=== PATIENT | female | born 1985 | race Caucasian/White ===

== ENCOUNTER 2022-04-06 11:29 | Outpatient (CLI) | payer OTHER, SELFPAY ==
--- NOTE | ~2022-04-06 | XR_ITS ---
XR chest 2V DATE: 04/06/2022 12:37 INDICATION: Nicotine dependence TECHNIQUE: PA and lateral views COMPARISON: None FINDINGS: Normal heart size. No hilar or mediastinal enlargement. The lungs are mildly hyperinflated. No pulmonary infiltrate or consolidation, pleural effusion or pulmonary vascular congestion or pneum othorax. Included skeletal structures are unremarkable. IMPRESSION: Mild bilateral hyperinflation; no active cardiopulmonary disease Reviewed, dictated and finalized at location A. S REPRESENTATIVE CASH REGISTERS
[2022-04-06 12:03] LABS: Basophils Percent Auto 0.6 % (0.2-1.2); Eosinophils Absolute Auto 0.2 K/mm3 (0-0.3); Eosinophils Percent Auto 3.1 % (0-4.4); Hematocrit 40.4 % (37.0-47.0); Hemoglobin 13.1 g/dL (12.0-15.0); Immature Granulocyte Absolute 0.01 K/mm3 (0.00-0.031); Immature Granulocyte Percent A 0.2 % (0-0.5); Lymphocytes Absolute Auto 2.39 K/mm3 (0.9-3.2); Lymphocytes Percent Auto 37.3 % (18.3-44.2); Mean Corpuscular HGB Conc 32.4 g/dl (32-36); Mean Corpuscular Hemoglobin 30.3 pg (26-34); Mean Corpuscular Volume 93.5 fl (80-100); Mean Platelet Volume 8.8 fl (7.4-10.4); Monocytes Absolute Auto 0.4 K/mm3 (0.1-0.6); Monocytes Percent Auto 5.6 % (2.6-8.5); Neutrophils Absolute Auto 3.4 K/mm3 (1.3-6.7); Neutrophils Percent Auto 53.2 % (45.5-73.1); Platelet Count Result 330 k/mm3 (150-375); Red Blood Count 4.32 M/mm3 (4.2-5.4); Red Cell Distribution Width 13.2 % (11.5-14.5); White Blood Count 6.4 K/mm3 (4.5-10.0)
--- NOTE | 2022-04-06 12:12 | ECG_ITS ---
Measurements Intervals [place] Rate: 78 P: 11 MA: 170 QRS: 59 QRSD: 82 T: 38 QT: 367 QTc: 418 Interpretive Statements SINUS RHYTHM NORMAL ECG NO PREVIOUS ECG AVAILABLE FOR COMPARISON Electronically Signed On 04-06-2022 12:53:08 ATOMIC PROCESS ENGINEER by Jake Mcclendon D.O.
[2022-04-06 12:15] LABS: Prothrombin Time 12.9 Seconds (11.1-14.7)
[2022-04-06 12:22] LABS: Anion Gap 13 mmol/L (8-16); Blood Urea Nitrogen 17 mg/dL (7-17); Calcium 8.3 mg/dL (8.4-10.2); Carbon Dioxide 28 mmol/L (22-30); Chloride 99 mmol/L (98-107); Estimated Glomerular Filt Rate > 60; Glucose 103 mg/dL (65-110); Sodium 140 mmol/L (137-145)
[2022-04-06 13:06] LABS: Appearance Urine Cloudy (Clear); Bilirubin Urine Negative (Negative); Blood Urine Trace-intact (Negative); Color Urine Dark Yellow (Yellow); Glucose Urine UA Negative (Negative); Ketones Urine Negative (Negative); Leukocyte Esterase Ur Negative LEU/UL (Negative); Nitrate Urine Negative (Negative); Protein Urine Negative (Negative); Urobilinogen Urine 0.2 mg/dL (<2.0)
[2022-04-06 13:10] LABS: Bacteria Urine Trace /hpf; Mucus Urine Few /lpf; RBC Urine 0-2 /hpf (0-2); Squamous Epithelial Cell Urine Many /hpf (Few); WBC Urine 0-3 /hpf
[2022-04-06 13:28] LABS: Add Urine Microscopic? YES
== END 2022-04-06 11:30 | disposition home or self-care (01) ==
PROVIDERS: Visit Provider Neurological Surgery
DX: Z01.818 Encounter for other preprocedural examination (principal); Z87.891 Personal history of nicotine dependence; R91.8 Other nonspecific abnormal finding of lung field
CPT/HCPCS: 36415; 71046; 80048; 81001; 85025; 85610; 85730; 86850; 86900; 86901; 93005

== ENCOUNTER 2022-04-13 15:38 | Outpatient (CLI) | payer OTHER, SELFPAY ==
[2022-04-13 16:48] LABS: Appearance Urine Clear (Clear); Bilirubin Urine Negative (Negative); Blood Urine Trace-intact (Negative); Color Urine Yellow (Yellow); Glucose Urine UA Negative (Negative); Ketones Urine Negative (Negative); Leukocyte Esterase Ur Negative LEU/UL (NEGATIVE); Nitrate Urine Negative (Negative); Protein Urine Negative (Negative); Urobilinogen Urine 0.2 mg/dL (<2.0); pH Urine 7.5 (5.0-9.0)
[2022-04-13 17:42] LABS: Mucus Urine Rare /lpf; RBC Urine 0-2 /hpf (0-2); Squamous Epithelial Cell Urine Moderate /hpf (Few); WBC Urine 0-3 /hpf (0-3)
[2022-04-13 17:47] LABS: Add Urine Microscopic? YES
== END 2022-04-13 15:39 | disposition home or self-care (01) ==
LOC: ANHLAB 15:40
PROVIDERS: Visit Provider Neurological Surgery
DX: Z01.818 Encounter for other preprocedural examination (principal)
CPT/HCPCS: 81001; 87086; 87088

== ENCOUNTER 2022-04-25 01:41 | Day surgery (SDC) | payer OTHER, SELFPAY ==
[2022-04-17 15:23] VITALS: BMI 26.4
--- NOTE | 2022-04-17 15:30 | SUR.PREOP ---
Report to the Outpatient Waiting Room, entrance under the green pavilion located off [facility], at time _0600 on date __04/25/22 . Planned Procedure Time: _0730 . Time changes happen often and if your time is changed the preop area will call you the afternoon before. - You and your visitor will be asked to self-screen and do not enter if you have any COVID symptoms. - Only one visitor is requested with a max of two and NO children visitors are allowed at this time. - The patient visitor may be requested to leave or wait in car when not with patient due to distancing restrictions. - A mask is optional within the hospital. Patients may have clear liquids (water, carbonated beverages, clear teas, apple juice) until 3 hours prior to surgery with a maximum of 20 ounces. - No food from midnight until time of surgery - Infants may have breast milk until 4 hours before surgery, formula 6 hours prior to surgery. - Children will be allowed to drink immediately following surgery. If applicable, please bring a bottle or sippy cup to assist with drinking. Juice, water, soda, and popsicles are readily available. For infants on formula, please bring formula the day of surgery. Pacifiers are allowed. Take the following medications with a SIP of water the morning of surgery: _alprazolam_,vylar Medications to discontinue per physician _naproxen,exchedrin Date to take last dose_04/18/22 per surgeon Please no make-up, nail indonesian, hairspray, perfume, deodorant, or body powder the day of surgery. No jewelry (including any body piercings) or valuables the day of surgery, leave them at home. Please take a shower or bath the night before, or the morning of, surgery with an antibacterial soap. Wear comfortable, loose fitting clothing. Children are encouraged to wear pajamas. - Jewelry must be removed prior to entering the operating room. Rings and piercings that are not removed may be cut off. - The hospital will not accept responsibility for valuables. - Please leave all valuables, including medications, at home the day of surgery. If you are going home after surgery, a licensed fire truck driver must drive you home. - NO public transportation without another adult if you receive anesthesia. - We recommend that an adult stay with you for 24 hours following discharge. - We also recommend that you do not drive, make important decision, drink alcoholic beverages, or take any drugs that were not prescribed by your health care provider for at least 24 hours after your discharge time. For Pediatric surgeries, we recommend two adults accompany the child home. Follow any additional instructions given to you from your surgeon. If you or anyone in your household have experienced Covid symptoms in the past week, please notify your surgeon or the nurse liaison at the phone number below for possible testing. Telephone instructions given to _johnny benedict and asked if any additional questions and then verbalized understanding. Patient advised to call surgeon office or pre surgery nurse liaison [phone] if any additional questions.
[2022-04-25] VITALS (23 sets, daily range): BP systolic 99–155; BP diastolic 69–97; PULSE 73–112; RESP 6–28; TEMP 36–36.4; O2SAT 93–100
--- NOTE | ~2022-04-25 | XR_ITS ---
XR fluoroscopy no charge Pain management procedure TECHNIQUE: Fluoroscopy used during cervical discectomy with fusion performed by [Verna Hare MD] on 04/25/2022. 4 seconds of fluoroscopy time with 2 fluoroscopic images captured. ] FINDINGS: Correlate with procedure note. IMPRESSION: Fluoroscopy used during cervical discectomy with fusion. Reviewed, dictated and finalized at location A. ICAL NURSING DIRECTOR
--- NOTE | 2022-04-25 06:57 | SUR.PREOP ---
PT HAS CONSTANT NUMBNESS TO 3RD, 4TH AND 5TH DIGITS. NUMBNESS TO THUMBS AND 2ND DIGITS COMES AND GOES, SOME NUMBNESS TO LOWER ARMS.
[2022-04-25] MEDS: LACTATED RINGERS 1,000 ML 30 ML IV CONT ×2 (06:58→10:50)
--- NOTE | 2022-04-25 07:20 | WPDANESEPPF ---
Anes - Initial Pre Proc Eval Procedure: Operation Date: 04/25/22 07:30 Proposed Procedures p C5-6 C6-7 Anterior Cervical Discectomy with Fusion with Instrument - Verna Hare MD Date/Time: 04/25/22 07:20 Surgeon: Verna Hare MD Pre Op Diagnosis: Cervical Stenosis Patient Data Age: 36 Gender: F Height: 1.65 m Weight: 76.2 kg Last Vital Signs Temp 36.0 C L 04/25/22 06:52 Pulse 73 04/25/22 06:52 Resp 16 04/25/22 06:52 BP 141/84 H 04/25/22 06:52 Pulse Ox 100 04/25/22 06:52 O2 Del Method Room Air 04/25/22 06:52 Allergies Allergy/AdvReac Type Severity Reaction Status Date / Time No Known Allergies Allergy Unverified 04/25/22 06:11 Home Medications Medication Instructions Recorded Confirmed Type cariprazine 6 mg capsule (Vraylar) 6 mg PO DAILY 02/03/22 04/25/22 History escitalopram oxalate 20 mg tablet 30 mg PO DAILY 02/03/22 04/25/22 History (Lexapro) lisdexamfetamine 40 mg capsule 40 mg PO DAILY 03/27/22 04/25/22 History (Vyvanse) naproxen 500 mg tablet 500 mg PO .PRN 03/27/22 04/25/22 History alprazolam 1 mg tablet 1 mg PO DAILY 03/31/22 04/25/22 History rkqrpnx-yvrqckmxzcapq-yobtxoyy 250 1 tablet PO Q4-6H PRN Pain 04/17/22 04/25/22 History mg-250 mg-65 mg tablet (Excedrin Migraine) Laboratory Tests 04/25/22 06:28 Blood Type O Positive Antibody Screen Pending Patient hx anesthesia problems: none Family hx anesthesia problems: none Results Review: All pre-operative results and documents have been reviewed as part of the pre-operative evaluation. [facility] Past Medical History Medical History ADHD Adjustment disorder Bipolar disorder GERD (gastroesophageal reflux disease) Insomnia Mixed anxiety and depressive disorder Myelomalacia Onychomycosis Spinal stenosis in cervical region Trauma Family History Family History Father Hypertension Family history of malignant neoplasm neoplasm of skin Thyroid cancer Mother Family history of malignant neoplasm of uterus Uterine cancer Depression Anxiety Grandparent Hypertension Heart disease Malignant neoplasm of prostate Social History Social History Smoking status: Former smoker Tobacco type: e-cigarettes/vaping Additional smoking assessment comments: 10 years smoking,1ppd cigarettes ,then 10 years vaping and marijuana Alcohol intake: never Substance use: current Substance use type: marijuana Other substance usage details: smoking,daily Lack of Transportation: No Lack of Food: Never True Current Housing: I Have Housing Concerned About Future Housing: No Difficulty Paying Gas/Electric Bills: No Difficulty Paying for Meds: No Currently Unemployed: No Education: High School Diploma/GED Living arrangements: with family Gender identity (if verbalized by the patient): Female Spiritual care concerns: No Agree to blood products: Yes Anes - Eval Final PreProcedure Day of Procedure 04/25/22 07:20 Patient weight: overweight Heart: regular rate and rhythm Lungs: clear to auscultation Airway: Mallampati scale class II Neurological: alert and oriented Last oral intake: >/= 8 hours ASA classification: III Emergent: no Anesthetic plan: proceed Anesthesia type and monitoring: general ETT and standard monitoring Results Review: All pre-operative results and documents have been reviewed as part of the pre-operative evaluation. Informed Consent: The patient's anesthetic plan and its attendant risks and benefits were discussed with the patient/family/POA. Questions were solicited and answers provided to the satisfaction of the patient/family/POA.
--- NOTE | 2022-04-25 07:47 | WPDHPUPDATE1 ---
History and Physical Update Update Date/Time: 04/25/22 07:47 History and Physical has been reviewed, including an updated exam of the patient. There are NO changes in the patient's condition. Risks, benefits, and alternatives have been discussed and questions answered. Patient agrees to proceed with procedure. Plan is for ACDF C5-6 and C6-7
[2022-04-25] MEDS: ceFAZolin 2 GM/D5W 50 ML 2 GM/50 ML BAG IVPB ×2 (07:53→20:17)
[2022-04-25] MEDS: HEMOSTATIC MATRIX (SURGIFLO with THROMBIN) KIT 1 KIT XX (08:48)
--- NOTE | 2022-04-25 10:32 | W.PM.PROC2 ---
Procedure Note - Detailed Date of Procedure 04/25/22 Pre-op Diagnosis Cervical Stenosis with myelopathy Post-op Diagnosis Same Procedure Performed Anterior cervical discectomy with fusion, C5-6 and C6-7 Placement of interbody cage, C5-6 and C6-7 Surgeon Verna Hare MD Anesthesia General Indications Ms. Griffin is a 36-year-old female with a progressive history of numbness and weakness in all of her extremities over the last 2 years.? She has clear signs and symptoms of myelopathy under physical exam.? Her MRI shows multilevel cervical degeneration and disc bulges and has with significant cord compression at C5-6 and C6-7 in particular.? There is also myelomalacia of the spinal cord at the level of C6.? Given her progressive symptoms and the amount of cord compression on her imaging, I do recommend consideration of surgical intervention within the near future.? Particularly given the patinet's relatively young age as well as her smoking history, we have discussed a variety of surgical approaches including multilevel ACDF, as well as the alternative of an ACDF that targets the levels of greatest stenosis (C5-7) versus posterior approach.? At our initial visit I suggested to Brisa discuss surgical approach with one of my partners and requested that she come back to see me within the next 1-2 weeks to discuss surgery in more detail.? I have had this conversation with my partner, Dr. Evens Rasmussen, and he and I both agree that given the patient's smoking history as well as her congenital stenosis, with the most severe stenosis present at C5-6 and C6-7, that I would favor an approach the targeted C5-6 and C6-7 from an anterior approach.? The likelihood of pseudoarthrosis is extremely high in a smoker for 4 level fusion.? Thus, I would prefer to decompress the canal anteriorly at C5-6 and C6-7.? I recognize that this may require ultimately a posterior operation as well.? I have discussed with this with the patient who expresses understanding We have discussed the clinical diagnosis of cervical myelopathy and that the primary goal of any surgery would be to arrest the decline in terms of her clinical symptoms and that while we would hope for clinical recovery after surgery, it would by no means guarantee recovery of function. ? we have discussed the indications as well as the risks of surgery including but not limited to bleeding, infection, CSF leak, numbness, weakness, paralysis, stroke, coma, even .? We have discussed the risks specific to an ACDF approach including damage to adjacent structures such as blood vessels, esophagus, trachea, and recurrent laryngeal nerve.We also discussed the importance of smoking cessation in terms of minimizing the risk of pseudarthrosis. She expressed understanding and agreed with the plan, asking us to proceed with surgery, specifically ACDF at C5-6 and C6-7. Description of Procedure The patient was brought into the operating room where general anesthesia was induced without incident.? appropriate monitoring and access was obtained.? SSEP and MEP were obtained and monitored throughout the case.? The patient was positioned in a supine position on the OR table with a roll underneath her shoulder blades.? Her neck was extended.? All extremities were padded. The C5-6 level was identified with fluoroscopy and the patient was prepped and draped in a sterile fashion.? A linear incision was made in a skin crease in the left paratracheal region overlying the C5-6 disc space.? Hemostasis was achieved.? The platysma was dissected, cauterized and incised sharply.? The muscle was undermined and a retractor was placed.? The sternocleidomastoid and strap muscles were identified and dissected and, in an intramuscular plane dissectors were advanced to the prevertebral space. A bent needle was placed in the C5-6 disc space and the level was confirmed.? The self retaining retractors were placed. Dissection was carried down to expose the C6-7 disc
--- NOTE | 2022-04-25 12:17 | SUR.PHASEI ---
1200 pt remains sedated with oral airway,dr mora aware and instructed to let pt wake on own.
[2022-04-25] MEDS: MIDAZOLAM HCL (*CRX) 2 MG/2 ML VIAL 0.5 MG IV PUSH (13:38)
[2022-04-25] MEDS: MIDAZOLAM HCL (*CRX) 2 MG/2 ML VIAL 1.5 MG IV PUSH (14:01)
--- NOTE | 2022-04-25 14:08 | SUR.PHASEI ---
dr mora here and assessed pt ,pt agitated and moving frequently in stretcher,attempting to get out of stretcher and pull off monitors. moving all extremities. versed given . pads applied to stretcher for safety. falls asleep for short periods then awakens agitated.
--- NOTE | 2022-04-25 14:38 | SUR.PHASEI ---
DR. LOVETT HERE TO SEE PT, STATES SHE CAN BE ADMITTED TO THE FLOOR.
--- NOTE | 2022-04-25 14:54 | SUR.PHASEI ---
right upper arm bruising from bp cuff. [id number] called spouse ,pt has not had any previos surgery. informed spouse restless and confused at times. taken to bathroom per wheelchair.
--- NOTE | 2022-04-25 14:59 | SUR.PHASEI ---
1500 vss,voided large amount. back to stretcher and sleeping quietly.more cooperative. follows commands.
--- NOTE | 2022-04-25 15:23 | SUR.PHASEI ---
pt awaiting room assignment ,
--- NOTE | 2022-04-25 16:50 | ADMGEN ---
This patient, Brisa Griffin, was admitted to [facility] Surg Room 311-01. Patient/family oriented to hospital policies and general routines including ID bracelet, bed and alarms, visiting hours, pain management, procedures, bathroom and other care routines, personal items, smoking policy, room service/diet, and visiting hours. Information on how to activate the Rapid Response Team has been discussed. Patient/Family are encouraged to report perceived risks to care and to ask questions if they do not understand what they are told or what they should do.
[2022-04-25] MEDS: HYDROcodone/acetaminophen (*CRX) 10-325 MG TABLET 1 TAB PO (17:03)
--- NOTE | 2022-04-25 18:30 | WPDCN ---
Assessment and Plan Assessment and plan (1) Spinal stenosis in cervical region: Code(s): M48.02 - Spinal stenosis, cervical region Status: Acute (2) Cervical myelopathy: Code(s): G95.9 - Disease of spinal cord, unspecified Status: Acute (3) Psychiatric illness: Code(s): F99 - Mental disorder, not otherwise specified Status: Acute Plan The patient is status post anterior cervical diskectomy with fusion and placement of interbody cage at C5-6 and C6-7. Wound care, pain control, and DVT prophylaxis deferred to the primary service. Postoperatively her vital signs have been stable. Her pain is well controlled on hydrocodone. She has not had much to eat yet as of yet as she is just not hungry. She has been able to drink without issues. Once tolerating p.o. her IV fluids can be discontinued. Check baseline labs in a.m. Her home medications will be reviewed and resumed as appropriate. Thank you for allowing us to participate in this patient's care. Please do not hesitate to contact us with any questions. HPI Data of Consult Date/Time: 04/25/22 18:30 Requesting Physician: Consulting physician: Verna Hare MD. Primary Care Provider: Supervising physician: Dr. Mandy Vargas. Consult Narrative Reason for consult: Postoperative medical management. Narrative: This is a 36-year-old female with bipolar disorder, depression, ADD, and congenital cervical stenosis status post elective anterior cervical diskectomy with fusion and placement of interbody cage from C5-6 and C6-7 whom the hospitalist service has been consulted for postoperative medical management. Over the past couple of years she has had progressive numbness and weakness in all of her extremities, upper greater than lower, and she elected for surgery today. Her surgery was performed under general anesthesia with no immediate complications documented. Postoperatively she is doing well and she has minimal pain after receiving hydrocodone. She has not noticed any significant swelling in the neck and she has been able to eat and drink without issue. She also denies postoperative fever, chills, sweats, chest pain, shortness a breath, nausea, and vomiting. She denies acute changes in weakness and numbness in the upper extremities. Review of Systems Review of Systems: Twelve systems were reviewed. No recent cold or flu symptoms. No chest pain or pleuritic pain. She denies shortness of breath. No nausea or vomiting. She reports that her psychiatric illnesses are well controlled on home medication. Except as documented, all other systems were reviewed and are negative. [facility] Past Medical History Medical History (Updated 04/25/22 @ 21:22 by Lucina Monet PA-C) ADHD Adjustment disorder Bipolar disorder Gastroesophageal reflux Insomnia Mixed anxiety and depressive disorder Myelomalacia Onychomycosis Spinal stenosis in cervical region Tobacco dependence Surgical History Surgical History (Updated 04/25/22 @ 21:23 by Lucina Monet PA-C) History of fusion of cervical spine Family History Family History Father Hypertension Family history of malignant neoplasm neoplasm of skin Thyroid cancer Mother Family history of malignant neoplasm of uterus Uterine cancer Depression Anxiety Grandparent Hypertension Heart disease Malignant neoplasm of prostate Social History Social History (Updated 04/25/22 @ 21:23 by Lucina Monet PA-C) Social History: Surrogate medical decision maker: Kal Cacereser, spouse. Code status: Full code. Smoking status: Former smoker Additional smoking assessment comments: 10 years smoking,1ppd cigarettes ,then 10 years vaping and marijuana Alcohol intake: never Substance use: current Substance use type: marijuana Other substance usage details: smoking,daily Lack of Transportation: No Lack of Food: Never True
[2022-04-25] MEDS: DOCUSATE SODIUM 100 MG CAPSULE PO (20:18)
[2022-04-26 03:49] VITALS: BP 109/69; PULSE 77; RESP 14; TEMP 37.1; O2SAT 98
[2022-04-26] MEDS: HYDROcodone/acetaminophen (*CRX) 10-325 MG TABLET 1 TAB PO (06:21)
[2022-04-26 06:38] LABS: Hematocrit 38.4 % (37.0-47.0); Hemoglobin 12.6 g/dL (12.0-15.0); Mean Corpuscular HGB Conc 32.8 g/dl (32-36); Mean Corpuscular Hemoglobin 30.5 pg (26-34); Mean Platelet Volume 9.1 fl (7.4-10.4); Platelet Count Result 295 k/mm3 (150-375); Red Blood Count 4.13 M/mm3 (4.2-5.4); Red Cell Distribution Width 13.4 % (11.5-14.5); White Blood Count 14.3 K/mm3 (4.5-10.0)
[2022-04-26 06:42] LABS: Anion Gap 7 mmol/L (8-16); Blood Urea Nitrogen 13 mg/dL (7-17); Calcium 8.7 mg/dL (8.4-10.2); Carbon Dioxide 29 mmol/L (22-30); Chloride 99 mmol/L (98-107); Estimated CRCL calculation 110 ml/min; Estimated Glomerular Filt Rate > 60; Glucose 95 mg/dL (65-110); Magnesium 2.2 mg/dL (1.6-2.3); Potassium 4.1 mmol/L (3.4-5.0); Sodium 135 mmol/L (137-145)
[2022-04-26 07:49] VITALS: BP 110/64; PULSE 75; RESP 15; TEMP 36.9; O2SAT 98
[2022-04-26] MEDS: ceFAZolin 2 GM/D5W 50 ML 2 GM/50 ML BAG IVPB (08:33)
[2022-04-26] MEDS: DOCUSATE SODIUM 100 MG CAPSULE PO (08:34)
[2022-04-26] MEDS: ESCITALOPRAM OXALATE 10 MG TABLET 30 MG PO (08:34)
[2022-04-26] MEDS: ALPRAZolam (*CRX) 0.5 MG TABLET 1 MG PO (08:36)
--- NOTE | 2022-04-26 12:23 | PM.IMPN ---
Progress Note: A&P Assessment and Plan (1) Spinal stenosis in cervical region: Code(s): M48.02 - Spinal stenosis, cervical region Status: Acute Assessment and Plan: POD1 Anterior cervical fusion with discectomy C5-6 and C6-7 with placement of interbody cage, C5-6 and C6-7 Postop per Neurosurgery Pain managed on PO analgesics. No urinary retention or incontinence, numbness/tingling and weakness unchanged for preop. Tolerating diet without N/V H/H stable without s/s bleeding. WBC 14 but afebrile and surgical site without infection, LS clear, no dysuria or flank pain; 2/2 surgery. We discussed monitoring surgical site for s/s infection daily. Postop antibiotics per surgery. Renal function and electrolytes stable. VS stable. DVT prophylaxis per surgery (2) Cervical myelopathy: Code(s): G95.9 - Disease of spinal cord, unspecified Status: Chronic Assessment and Plan: chronic, stable. postop management as above. (3) Bipolar disorder: Qualifiers: Active/Remission status: in remission of unspecified degree Qualified Code(s): F31.70 - Bipolar disorder, currently in remission, most recent episode unspecified Code(s): F31.9 - Bipolar disorder, unspecified Status: Chronic Assessment and Plan: Chronic, stable. Continue Vraylar and Lexapro at home doses (4) ADHD: Qualifiers: Attention deficit-hyperactivity disorder type: unspecified Qualified Code(s): F90.9 - Attention-deficit hyperactivity disorder, unspecified type Code(s): F90.9 - Attention-deficit hyperactivity disorder, unspecified type Status: Chronic Assessment and Plan: Chronic, stable. She was instructed to stop Vyvanse by her outpatient provider. Hold inpatient. (5) Tobacco dependence: Code(s): F17.200 - Nicotine dependence, unspecified, uncomplicated Status: Chronic Assessment and Plan: Chronic, former cigarette smoker x10 years and currently vaping nicotine and marijuana. Recommend cessation. Plan Patient stable on current medications without need for adjustment at this time. Thank you for allowing us to participate in this patient's care. Please do not hesitate to contact us with any questions. Time Spent With Patient Time with patient: 15 - 25 minutes Subjective Date/time seen: 04/26/22 12:23 She reports chronic paresthesia to extremities that is unchanged. No paralysis. Her pain is tolerable on oral analgesics at this time. No chest pain, SOB, cough, palpitations, abd pain, N/V, or dysuria. She has not yet had a BM but is tolerating her diet without complaints. Review of Systems Review of Systems: All systems reviewed & are unremarkable except as noted in HPI and below Exam Narrative: General: No acute distress.? Well-developed and well-groomed adult female.? Sitting up in bed.? Mental Status/Psych: Awake, alert and oriented x4 with clear speech. Neutral mood and affect. Pleasant and cooperative. Skin: Skin fair, warm, and dry, without rashes or lesions. 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 HEENT: Normocephalic.? Atraumatic.? Sclera is non-icteric. EOM intact. PERRL. Grossly normal hearing. Oral mucosa pink and dry. Neck: Supple, mild generalized edema anterior neck. Trachea midline. No JVD. Heart: S1 and S2 regular rate and rhythm. No murmurs, gallops, or rubs auscultated. Chest: Respirations even and unlabored. Lung sounds are clear to auscultation in all lobes bilaterally without wheezes, rhonchi, or rales.? Speaking full sentences. Abdomen: Soft, round and nontender to palpation.? No guarding.? Bowel sounds present in all 4 quadrants. Extremities:? Grossly normal ROM all extremities, generalized weakness. BUE hand grasps equal 4/5. equal plantar flexion. No edema, erythema, tenderness to palpation. Radial and dorsalis pedis pulses +2 bilaterally. Neuro
== END 2022-04-26 13:30 | disposition home or self-care (01) ==
LOC: ANHSURGERY 11:20 → ANH3MEDSUR 16:57
PROVIDERS: Physician Assistant; PCP Physician Assistant; Visit Provider Neurological Surgery
PROC: (CPT 63030; principal; 2022-04-25 07:30)
DX: M48.02 Spinal stenosis, cervical region (principal); G99.2 Myelopathy in diseases classified elsewhere; F90.9 Attention-deficit hyperactivity disorder, unspecified type; F31.9 Bipolar disorder, unspecified; F41.8 Other specified anxiety disorders; F12.90 Cannabis use, unspecified, uncomplicated; F17.290 Nicotine dependence, other tobacco product, uncomplicated
CPT/HCPCS: 22551; 22552; 22853 ×2; 36415; 71046; 80048; 81001; 83735; 85025; 85027; 85610; 85730; 86850; 86900; 86901; 87086; 87088; 93005; 97161; 97165; 99199; A9270; C1713; C9290; J0330; J0360; J0690; J1100; J1170; J2250; J2405; J2704; J3010; J3370; J7120

== ENCOUNTER 2022-06-06 13:54 | Outpatient (CLI) | payer OTHER, SELFPAY ==
--- NOTE | ~2022-06-06 | XR_ITS ---
EXAMINATION: [id number]_[id number]_CR DATE: 06/06/2022 14:09 INDICATION: Neck pain. TECHNIQUE: 2 views of the cervical spine were obtained. COMPARISON: None. FINDINGS: There is 6 degrees levocurvature of cervicothoracic spine. Vertebral body heights are carlee l. There is moderately decreased disc height at C3-C4 and C4-C5. There are changes of anterior fusion procedure from C5 to C7 with interbody devices and anterior plate and screws. There is multilevel un covertebral joint osteoarthritis, moderate to severe from C3-C4 through C6-C7. Osseous central spinal canal is developmentally small in cervical spine. There is mild central canal stenosis at C3-C4, C4- C5, C5-C6, and C6-C7. No prevertebral soft tissue swelling. IMPRESSION: 1. Moderate cervical spondylosis. 2. Anterior fusion procedure from C5 to C7. Reviewed, dictated and finalized at location A. ER PROGRAM COORDINATOR
== END 2022-06-06 13:55 | disposition home or self-care (01) ==
LOC: ANHIMG 13:58
PROVIDERS: PCP Physician Assistant; Visit Provider Nurse Practitioner Adult Health
DX: M48.02 Spinal stenosis, cervical region (principal); M47.892 Other spondylosis, cervical region; Z98.1 Arthrodesis status
CPT/HCPCS: 72040

== ENCOUNTER 2022-10-18 12:55 | Outpatient (CLI) | payer OTHER, SELFPAY ==
--- NOTE | ~2022-10-18 | XR_ITS ---
Cervical Spine: AP, lateral, open-mouth views Clinical History: Arthrodesis COMPARISON: 06/06/2022 Findings: Stable anterior fusion hardware from C5 to C7 with associated interbody fusion devices at t he C5-C6 and C6-C7 disc spaces. Mild degenerative disc narrowing at C3-C4 and C4-C5 is similar to dominique or exam. Pre-vertebral soft tissues are unremarkable. Impression: Stable anterior fusion from C5 to C7, as detailed above. Reviewed, dictated and finalized at location M. Impression: Stable anterior fusion from C5 to C7, as detailed above.
--- NOTE | ~2022-10-18 | MR_ITS ---
MRI of the cervical spine Clinical History: Arm pain Technique: Axial T2-weighted and gradient images, and sagittal T1-weighted, T2-weighted, and STIR deonte ges were acquired. Following intravenous administration of 15 cc MultiHance gadolinium, T1-weighted f at-sat imaging was performed in the axial and sagittal planes. Findings: There is straightening of the normal cervical lordosis. There is anterior fusion from C5 th rough C7, with associated anterior hardware and susceptibility artifact. Intraosseous hemangioma in T 1 noted. No fracture or subluxation seen. At C2-C3, there is no disc bulge or herniation. There is no spinal canal stenosis, cord compression, or neural foraminal narrowing. At C3-C4, there is disc osteophyte complex, resulting in mild to moderate canal stenosis and mild cor d compression. There is bilateral neural foraminal narrowing, left worse than right. At C4-C5, there is disc osteophyte complex results in moderate canal stenosis and mild to moderate co rd compression. Neural foramina are preserved. At C5-C6, there is disc osteophyte complex resulting in moderate to severe canal stenosis and cord co mpression. There is focal spinal cord edema at this level. There is bilateral neural foraminal narrow ing. At C6-C7, there is disc osteophyte complex resulting in moderate to severe canal stenosis and cord co mpression. Bilateral neural foramina are narrowed, left worse than right. Postcontrast images demonstrate focal enhancement within spinal cord at the C5-C6 level on the left s kamari (sagittal image 10, axial postcontrast image 20). Paravertebral soft tissues are unremarkable. Impression: Moderate to severe cord compression and canal stenosis at C5-C6 and C6-C7. There is associated spinal cord edema focally at the C5-C6 level. Focal cord enhancement at the C5-C6 level is present, which i s rarely associated with compressive myelopathy. Mild to moderate cord compression at C4-C5, and mild cord compression at C3-C4, again related to disc osteophyte complexes. Multilevel neural foraminal narrowing, as detailed above. Anterior fusion hardware from C5 to C7 with straightening of the normal cervical lordosis. Reviewed, dictated and finalized at location . Impression: Moderate to severe cord compression and canal stenosis at C5-C6 and C6-C7. Ther e is associated spinal cord edema focally at the C5-C6 level. Focal cord enhanc ement at the C5-C6 level is present, which is rarely associated with compressiv e myelopathy. Mild to moderate cord compression at C4-C5, and mild cord compression at C3-C4, again related to disc osteophyte complexes. Multilevel neural foraminal narrowing, as detailed above. Anterior fusion hardware from C5 to C7 with straightening of the normal cervica l lordosis.
== END 2022-10-18 12:56 ==
LOC: MICIMG 12:56
PROVIDERS: PCP Physician Assistant; Visit Provider Neurological Surgery
DX: M79.603 Pain in arm, unspecified (principal); Z98.1 Arthrodesis status; M48.02 Spinal stenosis, cervical region
CPT/HCPCS: 72040; 72156; A9577

== ENCOUNTER 2023-02-23 13:37 | Outpatient (CLI) | payer OTHER, SELFPAY ==
[2023-02-23 14:02] LABS: Hematocrit 39.5 % (37.0-47.0); Hemoglobin 12.7 g/dL (12.0-15.0); Mean Corpuscular HGB Conc 32.2 g/dl (32-36); Mean Corpuscular Hemoglobin 28.9 pg (26-34); Mean Platelet Volume 9.1 fl (7.4-10.4); Platelet Count Result 350 k/mm3 (150-375); Red Blood Count 4.39 M/mm3 (4.2-5.4); Red Cell Distribution Width 13.4 % (11.5-14.5); White Blood Count 5.8 K/mm3 (4.5-10.0)
[2023-02-23 14:15] LABS: Anion Gap 6 mmol/L (8-16); Blood Urea Nitrogen 18 mg/dL (7-17); Calcium 9.1 mg/dL (8.4-10.2); Carbon Dioxide 27 mmol/L (22-30); Chloride 105 mmol/L (98-107); Estimated Glomerular Filt Rate > 60; Glucose 99 mg/dL (65-110); Potassium 3.7 mmol/L (3.4-5.0); Sodium 138 mmol/L (137-145)
[2023-02-23 15:03] LABS: Prothrombin Time 13.9 Seconds (11.1-14.7)
[2023-02-23 15:04] LABS: Partial Thromboplastin Time 29.6 SECONDS (22.3-36.8)
[2023-02-23 15:20] LABS: Appearance Urine Clear (Clear); Bacteria Urine 1+ /hpf; Bilirubin Urine Negative (Negative); Blood Urine 2+ (Negative); Color Urine Yellow (Yellow); Glucose Urine UA Negative (Negative); Ketones Urine Negative (Negative); Leukocyte Esterase Ur Negative LEU/UL (Negative); Mucus Urine Present /lpf; Need Manual Microscopic Reviewed; Nitrate Urine Negative (Negative); Protein Urine Trace mg/dL (Negative); RBC Urine 21-50 /hpf (0-2); Specific Grav Ur 1.024 (1.001-1.035); Squamous Epithelial Cell Urine Many /hpf (Few); Urobilinogen Urine 0.2 mg/dL (<2.0); WBC Urine 0-5 /hpf; pH Urine 5.5 (5.0-9.0)
[2023-02-23 15:22] LABS: Add Urine Microscopic? YES
== END 2023-02-23 13:38 | disposition home or self-care (01) ==
LOC: ANHSURGERY 13:39
PROVIDERS: PCP Physician Assistant; Visit Provider Neurological Surgery
DX: M48.02 Spinal stenosis, cervical region (principal); Z01.818 Encounter for other preprocedural examination
CPT/HCPCS: 36415; 80048; 81001; 85027; 85610; 85730; 86850; 86900; 86901

== ENCOUNTER 2023-03-02 13:00 | Observation (INO) | payer OTHER, SELFPAY ==
[2023-02-22 14:41] VITALS: BMI 29.1
--- NOTE | 2023-02-22 14:46 | PC.NURSE ---
Report to the Outpatient Waiting Room, entrance under the green pavilion located off [facility], at time 6:00 on date 03/01/23. Planned Procedure Time: 7:30. Time changes happen often and if your time is changed the preop area will call you the afternoon before. - You and your visitor will be asked to self-screen and do not enter if you have any COVID symptoms. - A mask is optional within the hospital at this time. Patients may have clear liquids (water, carbonated beverages, clear teas, apple juice) until 3 hours prior to surgery with a maximum of 20 ounces. - No food from midnight until time of surgery Take the following medications with a SIP of water the morning of surgery: VRAYLAR, LEXAPRO, ALPRAZOLAM DO NOT STOP ANY OF YOUR OTHER PRESCRIPTION MEDICATIONS PRIOR TO SURGERY ?EXCEPT THE FOLLOWING Medications to discontinue per physician: EXCEDRIN MIGRAINE/ANY PRODUCT WITH ASPIRIN Date to take last dose: 02/21/23 Please no make-up, nail filipino, hairspray, perfume, deodorant, or body powder the day of surgery. No jewelry (including any body piercings) or valuables the day of surgery, leave them at home. Please take a shower or bath the night before, or the morning of, surgery with an antibacterial soap. Wear comfortable, loose fitting clothing. - Jewelry must be removed prior to entering the operating room. Rings and piercings that are not removed may be cut off. - The hospital will not accept responsibility for valuables. - Please leave all valuables, including medications, at home the day of surgery. If you are going home after surgery, a licensed clark driver must drive you home. - NO public transportation without another adult if you receive anesthesia. - We recommend that an adult stay with you for 24 hours following discharge. - We also recommend that you do not drive, make important decision, drink alcoholic beverages, or take any drugs that were not prescribed by your health care provider for at least 24 hours after your discharge time. Follow any additional instructions given to you from your surgeon. If you or anyone in your household have experienced Covid symptoms in the past week, please notify your surgeon or the nurse liaison at the phone number below for possible testing. Telephone instructions given to PT - DANIE FRASER and asked if any additional questions and then verbalized understanding. Patient advised to call surgeon office or pre surgery nurse liaison [phone] if any additional questions.
[2023-03-01] VITALS (18 sets, daily range): BP systolic 108–191; BP diastolic 70–132; PULSE 75–96; RESP 14–21; TEMP 35.6–36.6; O2SAT 92–100
--- NOTE | 2023-03-01 06:57 | WPDANESEPPF ---
Anes - Initial Pre Proc Eval Procedure: Operation Date: 03/01/23 07:30 Proposed Procedures p C3-4 and C6-7 Posterior Cervical Decompression and Fusion - Verna Hare MD Date/Time: 03/01/23 06:57 Surgeon: Verna Hare MD Pre Op Diagnosis: cervical stenosis Patient Data Age: 37 Gender: F Height: 1.65 m Weight: 79.4 kg Allergies Allergy/AdvReac Type Severity Reaction Status Date / Time No Known Allergies Allergy Verified 02/22/23 14:38 Home Medications Medication Instructions Recorded Confirmed Type cariprazine 6 mg capsule (Vraylar) 6 mg PO DAILY 02/03/22 02/22/23 History escitalopram oxalate 20 mg tablet 30 mg PO DAILY 02/03/22 02/22/23 History (Lexapro) alprazolam 1 mg tablet 1 mg PO DAILY 03/31/22 02/22/23 History hwprrzl-opzldsbfafmly-aypzdikt 250 1 tablet PO Q4-6H PRN Migraine 02/22/23 02/22/23 History mg-250 mg-65 mg tablet (Excedrin Headache Migraine) dextroamphetamine-amphetamine 30 30 mg PO BID 02/22/23 02/22/23 History mg tablet Patient hx anesthesia problems: none Family hx anesthesia problems: none Results Review: All pre-operative results and documents have been reviewed as part of the pre-operative evaluation. [facility] Past Medical History Medical History ADHD Adjustment disorder Bipolar disorder Gastroesophageal reflux Insomnia Mixed anxiety and depressive disorder Myelomalacia Onychomycosis Spinal stenosis in cervical region Tobacco dependence Surgical History Surgical History History of fusion of cervical spine Status post cervical spinal fusion Family History Family History Father Hypertension Family history of malignant neoplasm neoplasm of skin Thyroid cancer Mother Family history of malignant neoplasm of uterus Uterine cancer Depression Anxiety Grandparent Hypertension Heart disease Malignant neoplasm of prostate Social History Social History Social History: Brisa is somewhat confident filling out medical forms. In the last 12 months she has not received assistance from an organization or program. Surrogate medical decision maker: Kal Griffin, spouse. Code status: Full code. Smoking status: Current every day smoker Tobacco type: e-cigarettes/vaping Additional smoking assessment comments: 10 years smoking,1ppd cigarettes ,then 10 years vaping and marijuana Alcohol intake: never Substance use: current Substance use type: marijuana Other substance usage details: smoking,daily Lack of Transportation: No Lack of Food: Never True Current Housing: I Have Housing Concerned About Future Housing: No Difficulty Paying Gas/Electric Bills: No Difficulty Paying for Meds: No Currently Unemployed: Decline to Answer Education: Decline to Answer Difficulty w/ Childcare or Family Care: No Living arrangements: with family Additional living arrangements comments: Lives with spouse. Occupation/Education: unemployed Additional occupation/education comments: Unable to work at this time. Spiritual care concerns: No Agree to blood products: Yes Anes - Eval Final PreProcedure Day of Procedure 03/01/23 06:57 Patient weight: obese Heart: regular rate and rhythm Lungs: clear to auscultation Airway: Mallampati scale class II Neurological: alert and oriented Last oral intake: >/= 8 hours ASA classification: III Emergent: no Anesthetic plan: proceed Anesthesia type and monitoring: general ETT and standard monitoring Results Review: All pre-operative results and documents have been reviewed as part of the pre-operative evaluation. Informed Consent: The patient's anesthetic plan and its attendant risks and benefits were discussed with the patient/family/POA. Questions were solicite
[2023-03-01] MEDS: SCOPOLAMINE 1.5 MG PATCH TRANSDERM (07:30)
[2023-03-01] MEDS: LACTATED RINGERS 1,000 ML 30 ML IV CONT ×2 (07:30→11:20)
[2023-03-01 07:39] LABS: Beta HCG Quantitative < 2.39 mIU/ML
--- NOTE | 2023-03-01 08:04 | WPDHPUPDATE1 ---
History and Physical Update Update Date/Time: 03/01/23 08:04 History and Physical has been reviewed, including an updated exam of the patient. There are NO changes in the patient's condition. Risks, benefits, and alternatives have been discussed and questions answered. Patient agrees to proceed with procedure. Plan is for posterior cervical decompression and fusion from C3-4 through C6-7
[2023-03-01] MEDS: ceFAZolin 2 GM/D5W 50 ML 2 GM/50 ML BAG IVPB (08:26)
[2023-03-01] MEDS: BACITRACIN OINTMENT 15 GM TUBE 1 APPLIC TOPICAL (09:30)
[2023-03-01] MEDS: VANCOMYCIN HCL 1,000 MG VIAL 1000 MG TOPICAL (10:23)
[2023-03-01] MEDS: LIDO 1%/EPINEPHRINE 1:100,000 20 ML VIAL 12 ML INFILTRATE (10:40)
--- NOTE | 2023-03-01 10:49 | W.PM.PROC2 ---
Procedure Note - Detailed Date of Procedure 03/01/23 Pre-op Diagnosis cervical stenosis Post-op Diagnosis Same Procedure Performed posterior cervical decompression with laminectomies and foraminotomies C3-4, C4-5, C5-6 and C6-7 posterior cervical arthrodesis C3-4, C4-5 C5-6 and C6-7 Instrumented cervical fusion C3-C6 removal of subcutaneous sebaceous cyst Surgeon Verna Hare MD Anesthesia General Indications Brisa Griffin is a 37 year old female who presents today approximately 8 months after undergoing an ACDF at C5-6 and C6-7 with placement of interbody cage at C5-6 and C6-7, completed on 04/25/2022. She reports that she is doing better .? She reports that she doesn't recognize a significant improvement in her overall strength to her BUE's but reports that her neck pain is improved.? ? She does note some persistent pain and sensory symptoms in her upper extremities. overall, I am? pleased with the patient's progress.? She has seen benefit to a formal course of physical therapy.? She has not had any progression of symptoms? but she does remain with sensory symptoms in her hands as well as issues with balance and dexterity.? ? X-rays show expected changes from the anterior cervical diskectomy with fusion with suggestion of incorporation of the cages and fusion across the posterior aspect of the vertebral bodies at C5-6 and C6-7.? Given her persistent symptoms, however, ? We have discussed the finding of congenital spinal stenosis.? Prior to her original surgery we had discussed the possibility of supplementing her anterior decompression and fusion with a posterior approach.? I have explained that I would be inclined to consider this given the persistent stenosis and cord signal change seen on imaging from September of 2022 ? I would be inclined, as we discussed previously, to recommend an adjunctive posterior cervical decompression and fusion.? We have discussed the natural history of cervical myelopathy.? The patient has not had progressive symptoms but does remain with sensory symptoms and issues with dexterity and balance.? There is persistent spinal stenosis consistent with the patient's known congenital spinal stenosis and persistent cord signal change. I have explained that surgery would entail a? posterior cervical decompression and fusion from C3-4 through C6-7. I have explained the indications for surgery as well as the risks, including but not limited to bleeding, infection, CSF leak, numbness, weakness, paralysis, stroke, coma, even . We have discussed the risk of pseudarthrosis, hardware failure, adjacent level disease, and even the need for further surgery. We have discussed the fundamentals of the surgical procedure and the typical recovery from surgery.? Brisa indicates understanding and asks us to proceed.? Brisa came to the office with a number of questions regarding her surgery its indications and its recovery.? She emphasizes the frustration at her persistent myelopathic symptoms.? She has indicated that her symptoms are severe enough that she at times wonders about long-term disability.? I have recommended that we continue to proceed with surgery as discussed above.? We will evaluate her in the months after surgery and discuss any possible long-term disability.? I have emphasized again that surgery is not a guarantee of mormon of function but offers our best chance for functional recovery.? We have frankly discussed, however, that she may remain with some persistent neurological symptoms that are limiting even after this 2nd surgery.? She expresses understanding.? ?She presents today for surgery We have discussed the importance of continued smoking cessation to minimize the likelihood of pseudoarthrosis Description of Procedure The patient was brought into the operating room where general anesthesia was induced without complications.? A neutral position was used due to cervical stenosis.? Appropriate monitoring and access was achieved
[2023-03-01] MEDS: fentaNYL CITRATE INJ (*CRX) 100 MCG/2 ML VIAL 25 MCG IV PUSH ×8 (11:49→13:37)
[2023-03-01] MEDS: MIDAZOLAM HCL (*CRX) 2 MG/2 ML VIAL 1 MG IV PUSH ×2 (12:19→12:26)
[2023-03-01] MEDS: HYDROmorphone HCL INJ (*CRX) 1 MG/ML SYR 0.25 MG IV PUSH (14:02)
[2023-03-01] MEDS: KCL 20 MEQ/D5/0.45% SOD CHL 1,000 ML 100 ML IV CONT (15:21)
[2023-03-01] MEDS: MORPHINE SULFATE (*CRX) 2 MG/ML INJ IV PUSH ×2 (15:21→20:17)
--- NOTE | 2023-03-01 16:45 | ADMGEN ---
This patient, Brisa Griffin, was admitted to Medical Room 341-01 . Patient/family oriented to hospital policies and general routines including ID bracelet, bed and alarms, visiting hours, pain management, procedures, bathroom and other care routines, personal items, smoking policy, room service/diet, and visiting hours. Information on how to activate the Rapid Response Team has been discussed. Patient/Family are encouraged to report perceived risks to care and to ask questions if they do not understand what they are told or what they should do.
--- NOTE | 2023-03-01 16:47 | PC.NURSE ---
Aircraft Metalsmith emtered room to assist patient to restroom and drain was dislodged. [employer]als[employer] notified provider. No new orders.
--- NOTE | 2023-03-01 19:43 | PC.NURSE ---
Patient impulsive and pulling at IV when she moves. MD aware and confirms fluids may be paused at this time.
[2023-03-01] MEDS: DOCUSATE SODIUM 100 MG CAPSULE PO (20:22)
[2023-03-01] MEDS: ONDANSETRON INJ 4 MG/2 ML VIAL IV PUSH (21:57)
[2023-03-01] MEDS: HYDROcodone/acetaminophen (*CRX) 10-325 MG TABLET 1 TAB PO (21:57)
--- NOTE | ~2023-03-02 | XR_ITS ---
EXAMINATION: XR fluoroscopy no charge DATE: 03/01/2023 10:57 INDICATION: Cervical decompression and fusion TECHNIQUE: 2 fluoroscopic lateral images of the cervical spine were obtained during procedure perform ed by Dr. Hare. Radiologist was not present for the imaging or procedure. The amount of fluoroscopy time used during this procedure was 0.1 minutes. COMPARISON: 10/18/2022 FINDINGS: Initial images demonstrate partially obscured anterior plate and screw fixation for a C5-C7 anterior spinal fusion. Endotracheal tube extends through the pharynx. Subsequent image demonstrates postopera tive changes of a C3-C6 instrumented posterior spinal fusion with placement of bilateral vertical tuyet s and lateral mass screws at each level. There appear to be associated laminectomies at least at L3 a nd L4. 3 to the posterior margins of L5 and L6 is obscured by soft tissue retractors. IMPRESSION: 1. Fluoroscopy utilized during placement and instrumented C3-C6 posterior spinal fusion. See procedur e note for further detail. Reviewed, dictated and finalized at location A. IMPRESSION: 1. Fluoroscopy utilized during placement and instrumented C3-C6 posterior spina l fusion. See procedure note for further detail.
[2023-03-02] MEDS: MORPHINE SULFATE (*CRX) 2 MG/ML INJ IV PUSH ×2 (03:51→10:42)
[2023-03-02 03:56] VITALS: BP 135/88; PULSE 84; RESP 20; TEMP 36.7; O2SAT 99
--- NOTE | 2023-03-02 07:23 | WPDANESPN ---
Anes - Prog Note Post-Op Date/Time: 03/02/23 07:23 Cardiovascular status: normal Respiratory status: normal Airway patency: baseline Mental status: baseline Post-Op hydration status: normal Vital Signs: Last Vital Signs Temp 98.0 F 03/02/23 03:56 Pulse 84 03/02/23 03:56 Resp 20 03/02/23 03:56 BP 135/88 03/02/23 03:56 Pulse Ox 99 03/02/23 03:56 O2 Del Method Room Air 03/01/23 14:11 O2 Flow Rate 4 03/01/23 13:45 Pain Score (VAS): 0/10 I/O: Intake & Output 03/01/23 03/01/23 03/02/23 15:59 23:59 07:59 Intake Total 1800 500 Output Total 0 Balance 1800 500 03/01/23 07:07 Beta HCG, Quant < 2.39 Post-procedural complaints: none Patient Feedback: Patient satisfied with anesthetic care.
[2023-03-02] MEDS: DOCUSATE SODIUM 100 MG CAPSULE PO (08:50)
[2023-03-02] MEDS: ESCITALOPRAM OXALATE 10 MG TABLET 30 MG PO (08:50)
[2023-03-02] MEDS: ALPRAZolam (*CRX) 0.5 MG TABLET 1 MG PO (08:50)
[2023-03-02] MEDS: CYCLOBENZAPRINE HCL 10 MG TABLET PO (08:59)
[2023-03-02] MEDS: ONDANSETRON INJ 4 MG/2 ML VIAL IV PUSH (08:59)
[2023-03-02 09:18] VITALS: BP 138/85; PULSE 85; RESP 20; TEMP 36.9; O2SAT 100
[2023-03-02 09:31] VITALS: PULSE 84; RESP 20; O2SAT 99
--- NOTE | 2023-03-02 12:43 | PM.IMCN ---
Assessment and Plan Assessment and plan (1) Status post cervical spinal fusion: Code(s): Z98.1 - Arthrodesis status Status: Acute Assessment and Plan: POD 1 from posterior cervical decompression with laminectomies and foraminotomies C3-4, C4-5, C5-6 and C6-7, posterior cervical arthrodesis C3-4, C4-5, C5-6, and C6-7, as well as instrument cervical fusion C3-C6, and removal of subcutaneous sebaceous cyst. appears to be recovering well after surgery Continue with norco, flexeril for pain medication Continue with bowel regimen General diet Encourage up out of bed during the day Post-op labs reviewed, vitals reviewed. Medically appropriate for discharge HPI Data of Consult Consult date: 03/02/23 Requesting Physician: Verna Hare MD Primary Care Provider: Leona Cortés, PA Consult Narrative Narrative: Parts of the HPI have been obtained from the chart, Brisa Griffin is a 37 year old female who presented on 03/01, approximately 8 months after undergoing an ACDF at C5-6 and C6-7 with placement of interbody cage at C5-6 and C6-7, completed on 04/25/2022. She reports that she is doing better .? She reports that she doesn't recognize a significant improvement in her overall strength to her BUE's but reports that her neck pain is improved.? ? She does note some persistent pain and sensory symptoms in her upper extremities. She has seen benefit to a formal course of physical therapy.? She has not had any progression of symptoms? but she does remain with sensory symptoms in her hands as well as issues with balance and dexterity.? ? X-rays show expected changes from the anterior cervical diskectomy with fusion with suggestion of incorporation of the cages and fusion across the posterior aspect of the vertebral bodies at C5-6 and C6-7.? She presented on 03/[address] Hare and underwent posterior cervical decompression with laminectomies and foraminotomies C3-4, C4-5, C5-6 and C6-7, posterior cervical arthrodesis C3-4, C4-5, C5-6, and C6-7, as well as instrument cervical fusion C3-C6, and removal of subcutaneous sebaceous cyst. She has a past medical history of bipolar disorder, GERD, depression anxiety, myelomalacia, spinal stenosis, and tobacco dependence. The hospitalist service has been consulted to help manage chronic medical conditions postoperatively. 03/02-patient is seen today resting in bed. She says that she is still having pain but she seems to the understand that that is to be expected. She still has right upper extremity numbness and tingling as well as left lower extremity numbness and tingling which was present prior to her surgery. Her symptoms are not worse rather the just persist. She says that she was up with therapy earlier today. She did have an episode of nausea dizziness with ambulation but this was also the 1st time her being out of bed since surgery. She has been up independently to the bathroom. She seems agreeable to discharge later today if Neurosurgery is okay with this. I spoke with her about taking the oral pain medication rather than IV as this is what she will go home with. She is agreeable. I grabbed postop labs today she has a mild leukocytosis which is reactive to from her surgery. She has a mild hyponatremia of 132, otherwise her labs are essentially unremarkable. Vital signs are stable. She is urinating without difficulty. Incision to posterior neck is well-approximated and open to air without concerns for infection. Medically she appears appropriate for discharge. Review of Systems Review of Systems: All systems reviewed & are unremarkable except as noted in HPI and below PMFSH Past Medical History Medical History ADHD Adjustment disorder Bipolar disorder Gastroesophageal reflux Insomnia Mixed anxiety and depressive disorder Myelomalacia Onychomycosis Spinal stenosis in cervical region Tobacco dep
[2023-03-02 13:05] LABS: Basophils Percent Auto 0.2 % (0.2-1.2); Hematocrit 38.9 % (37.0-47.0); Hemoglobin 12.6 g/dL (12.0-15.0); Immature Granulocyte Absolute 0.04 K/mm3 (0.00-0.031); Immature Granulocyte Percent A 0.3 % (0-0.5); Lymphocytes Absolute Auto 2.16 K/mm3 (0.9-3.2); Lymphocytes Percent Auto 14.6 % (18.3-44.2); Mean Corpuscular HGB Conc 32.4 g/dl (32-36); Mean Corpuscular Volume 89.6 fl (80-100); Monocytes Absolute Auto 1.2 K/mm3 (0.1-0.6); Monocytes Percent Auto 8.4 % (2.6-8.5); Neutrophils Absolute Auto 11.3 K/mm3 (1.3-6.7); Neutrophils Percent Auto 76.5 % (45.5-73.1); Platelet Count Result 353 k/mm3 (150-375); Red Blood Count 4.34 M/mm3 (4.2-5.4); Red Cell Distribution Width 13.3 % (11.5-14.5); White Blood Count 14.8 K/mm3 (4.5-10.0)
[2023-03-02 13:15] LABS: Alanine Aminotransferase 23 U/L (6-35); Albumin Level 4.4 g/dL (3.5-5.1); Alkaline Phosphatase 69 U/L (38-126); Anion Gap 8 mmol/L (8-16); Aspartate Amino Transferase 34 U/L (14-36); Blood Urea Nitrogen 11 mg/dL (7-17); Calcium 8.7 mg/dL (8.4-10.2); Carbon Dioxide 29 mmol/L (22-30); Chloride 95 mmol/L (98-107); Estimated CRCL calculation 112 ml/min; Estimated Glomerular Filt Rate > 60; Glucose 115 mg/dL (65-110); Magnesium 2.1 mg/dL (1.6-2.3); Potassium 3.6 mmol/L (3.4-5.0); Sodium 132 mmol/L (137-145)
[2023-03-02 13:18] VITALS: BP 129/82; PULSE 82; RESP 18; TEMP 37; O2SAT 100
[2023-03-02] MEDS: HYDROcodone/acetaminophen (*CRX) 10-325 MG TABLET 1 TAB PO (14:14)
--- NOTE | 2023-03-22 13:21 | P.DS_ITS ---
DS: Admitting Diagnosis Discharge Date 03/02/23 Admitting Diagnosis cervical stenosis with myelopathy DS: Discharge Diagnosis Discharge Diagnosis (1) Cervical myelopathy: Code(s): G95.9 - Disease of spinal cord, unspecified Status: Chronic DS: Summary Hospital Course Reason for hospitalization: elective surgery Hospital Course: PAtient was brought into the hospital for elective posterior cervical dec ompression and fusion. She did well with surgery without complications. She did have significant pain in the immediate perioperetive time frame but by the morning of POD#1 was doing much better with improved pain control Time spent discussing smoking cessation with patient: 3 to 10 minutes Status at Discharge Functional status at discharge: independent ambulation Overall status at discharge: patient is back to baseline Time Spent with Patient Time attestation: Total time spent providing and/or coordinating discharge services: Time spent: Less than 30 minutes Exam Narrative: AAOx3 Speech CF ROBE EOMI Face= TML MAEW with good strength DS: Data Data Completed and Pending Completed studies during hospitalization: Pending at discharge 03/01/23 09:28 Surgical [PTH] Routine Discharge Plan Discharge Attending physician on discharge: Verna Hare Consulting providers: Aguila Kelley; Kal Iniguez; Charles Rodriguez; Mya Aponte Discharging Clinician: Verna Hare Anticipated Discharge Date/Time: 03/02/23 16:00 Patient Disposition: Home Health Service Activity: september shower Diet: regular Wound Care Instructions: follow printed instructions and incision open to air Discharge Instructions: Remove the Scopolamine patch that was placed behind your ear in 72 hours or less. Wash your hands after touching. Per Care Coordination Patient has [facility] arranged to see pt for RN, PT, OT needs. [phone] Patient Instructions: How to Stop Smoking (GEN) Stand Alone Forms: General Discharge Instructions Follow-up/Referrals: Verna Hare MD [Physician] - 6 Weeks Discharge Medications: New cyclobenzaprine 10 mg tablet 10 mg PO TID PRN (Reason: muscle spasm) Qty: 30 0RF hydrocodone-acetaminophen 5-325 mg tablet 1 - 2 tablet PO Q6H PRN (Reason: pain) Qty: 40 0RF Continued alprazolam 1 mg tablet 1 mg PO DAILY Rx Instructions: Just takes PRN Vraylar 6 mg capsule 6 mg PO DAILY escitalopram oxalate [Lexapro] 20 mg tablet 30 mg PO DAILY dextroamphetamine-amphetamine 30 mg tablet 30 mg PO BID Discontinued Excedrin Migraine 250-250-65 mg Tablet 1 tablet PO Q4-6H PRN (Reason: Migraine Headache) Date of admission: 03/02/23 13:00 Primary Care Provider: YoavLeona Admitting Provider: Verna Hare Attending physician on admission: Verna Hare Condition: Stable Quality VTE Prophylaxis VTE prophylaxis: mechanical ordered
== END 2023-03-02 18:00 | disposition home health service (06) ==
LOC: ANHSURGERY 13:16 → ANH3MED 13:16
PROVIDERS: Nurse Practitioner Acute Care; Admitting Provider Neurological Surgery; PCP Physician Assistant; Visit Provider Neurological Surgery
PROC: (CPT 22600; principal; 2023-03-01 07:30)
DX: M48.02 Spinal stenosis, cervical region (principal); Z98.1 Arthrodesis status; G95.9 Disease of spinal cord, unspecified; L72.3 Sebaceous cyst; R51.9 Headache, unspecified; F41.8 Other specified anxiety disorders; B35.1 Tinea unguium; F90.9 Attention-deficit hyperactivity disorder, unspecified type; F43.20 Adjustment disorder, unspecified; F31.9 Bipolar disorder, unspecified; K21.9 Gastro-esophageal reflux disease without esophagitis; E66.9 Obesity, unspecified; Z68.29 Body mass index [BMI] 29.0-29.9, adult; G47.00 Insomnia, unspecified; Z79.899 Other long term (current) drug therapy; F17.290 Nicotine dependence, other tobacco product, uncomplicated; F12.90 Cannabis use, unspecified, uncomplicated; Z98.890 Other specified postprocedural states
CPT/HCPCS: 22600; 22614 ×3; 63045; 63048 ×3; 22842; 20936; 36415; 80048; 80053; 81001; 83735; 84702; 85025; 85027; 85610; 85730; 86850; 86900; 86901; 88305; 97161; 97166; 97530; 97535; 99199; A9270; C1713; C9290; G0378; J0330; J0690; J1100; J1170; J2250; J2270; J2405; J2704; J2765; J3010; J3370; J3480; J7030; J7120

== ENCOUNTER 2023-05-24 16:39 | Outpatient (CLI) | payer OTHER, SELFPAY ==
--- NOTE | ~2023-05-24 | XR_ITS ---
[id number] 05/24/2023 16:57 Indication: Arthrodesis postop 12 weeks Procedure: 4 view cervical spine Comparison: 10/18/2022 Findings: Stable anterior fusion at C5-C7 with interbody fusion devices. Interval placement of pedicl e screws with posterior fusion at C3-6 with associated splenectomy changes. Straightening of cervical lordosis. Vertebral body heights are maintained. No acute fracture or traumatic malalignment. No pre vertebral soft tissue swelling. Impression: 1: Postsurgical changes consistent with anterior and posterior cervical fusion as described above. No acute bone or joint abnormality. Reviewed, dictated and finalized at location A. PHYSICIAN Impression: 1: Postsurgical changes consistent with anterior and posterior cervical fusion as described above. No acute bone or joint abnormality.
== END 2023-05-24 16:40 | disposition home or self-care (01) ==
PROVIDERS: PCP Physician Assistant; Visit Provider Physician Assistant
DX: Z98.1 Arthrodesis status (principal)
CPT/HCPCS: 72040

== ENCOUNTER 2023-06-22 12:42 | Emergency (ER) | payer OTHER, SELFPAY ==
[2023-06-22 12:44] VITALS: BP 163/122; PULSE 130; RESP 18; TEMP 36.6; O2SAT 100
[2023-06-22 15:47] LABS: Basophils Percent Auto 0.4 % (0.2-1.2); Eosinophils Absolute Auto 0.1 K/mm3 (0-0.3); Eosinophils Percent Auto 0.9 % (0-4.4); Hematocrit 40.1 % (37.0-47.0); Immature Granulocyte Absolute 0.02 K/mm3 (0.00-0.031); Immature Granulocyte Percent A 0.2 % (0-0.5); Lymphocytes Absolute Auto 3.87 K/mm3 (0.9-3.2); Lymphocytes Percent Auto 34.4 % (18.3-44.2); Mean Corpuscular HGB Conc 32.4 g/dl (32-36); Mean Corpuscular Hemoglobin 27.7 pg (26-34); Mean Corpuscular Volume 85.5 fl (80-100); Mean Platelet Volume 8.8 fl (7.4-10.4); Monocytes Absolute Auto 0.7 K/mm3 (0.1-0.6); Monocytes Percent Auto 6.5 % (2.6-8.5); Neutrophils Absolute Auto 6.5 K/mm3 (1.3-6.7); Neutrophils Percent Auto 57.6 % (45.5-73.1); Platelet Count Result 413 k/mm3 (150-375); Red Blood Count 4.69 M/mm3 (4.2-5.4); Red Cell Distribution Width 13.9 % (11.5-14.5); White Blood Count 11.2 K/mm3 (4.5-10.0)
[2023-06-22 16:06] LABS: Alanine Aminotransferase 21 U/L (6-35); Albumin Level 4.6 g/dL (3.5-5.1); Alkaline Phosphatase 80 U/L (38-126); Anion Gap 8 mmol/L (8-16); Aspartate Amino Transferase 24 U/L (14-36); Bilirubin,Total 0.3 mg/dL (0.2-1.3); Blood Urea Nitrogen 17 mg/dL (7-17); CRP < 0.5 mg/dL (<1.0); Calcium 9.4 mg/dL (8.4-10.2); Carbon Dioxide 26 mmol/L (22-30); Chloride 102 mmol/L (98-107); Estimated CRCL calculation 111 ml/min; Estimated Glomerular Filt Rate > 60; Glucose 105 mg/dL (65-110); Potassium 3.5 mmol/L (3.4-5.0); Sodium 136 mmol/L (137-145)
--- NOTE | 2023-06-22 16:27 | ED.NEUROSD ---
HPI - Neuro Symptoms/Deficit General Chief Complaint: Neuro Symptoms/Deficit Stated Complaint: neurno s/s Time Seen by Provider: 06/22/23 14:40 History of Present Illness HPI Narrative: Patient is a 37-year-old female who presents ER with paresthesias. Patient has history of cervical myelopathy and has had surgeries performed by Dr. Hare. last procedure was in February of 2023. She had follow-up on 06/15/2023 due to the fact that she has had increased sensation of her paresthesias in the same distribution of her chronic paresthesias for the last 2 weeks. She reports sharp pinprick discomfort that will occasionally cause her to fall. No saddle anesthesia. She reports no change in ability to urinate or defecate over last 2 weeks. No trauma to her neck or back. No fevers or chills or sweats. Patient has been scheduled for outpatient MRI but they were fighting her insurance company trying to get it done. Patient felt like she developed new tingling in the toes of the left foot the last 2 days she came in for further evaluation. Related Data Home Medications Medication Instructions Recorded Confirmed alprazolam 1 mg tablet 1 mg PO DAILY 03/31/22 06/22/23 dextroamphetamine-amphetamine 30 30 mg PO BID 02/22/23 06/22/23 mg tablet Allergies Allergy/AdvReac Type Severity Reaction Status Date / Time No Known Allergies Allergy Verified 06/22/23 14:48 Review of Systems Review of Systems: All systems reviewed & are unremarkable except as noted in HPI and below Constitutional: Constitutional: Reports no additional constitutional complaints ENT: Reports system reviewed and no additional complaints, except as documented Cardiovascular: Cardiovascular: Reports no additional cardiovascular complaints Respiratory: Respiratory: Reports no additional respiratory complaints Musculoskeletal: Musculoskeletal: Denies back pain, Denies arthralgias and Denies joint swelling Integumentary/Breasts: Skin/Breast: Reports system reviewed and no additional complaints, except as docu Neurologic: Denies syncope, Denies headache(s), Denies focal weakness and Reports numbness PMFSH Past Medical History Medical History ADHD Adjustment disorder Bipolar disorder Gastroesophageal reflux Insomnia Mixed anxiety and depressive disorder Myelomalacia Onychomycosis Spinal stenosis in cervical region Tobacco dependence Surgical History Surgical History History of fusion of cervical spine Status post cervical spinal fusion Family History Family History Father Hypertension Family history of malignant neoplasm neoplasm of skin Thyroid cancer Mother Family history of malignant neoplasm of uterus Uterine cancer Depression Anxiety Grandparent Hypertension Heart disease Malignant neoplasm of prostate Social History Social History Social History: Brisa is somewhat confident filling out medical forms. In the last 12 months she has not received assistance from an organization or program. Surrogate medical decision maker: Kal Cacerseer, spouse. Code status: Full code. Smoking status: Current every day smoker Additional smoking assessment comments: 10 years smoking,1ppd cigarettes ,then 10 years vaping and marijuana Alcohol intake: never Substance use: current Substance use type: marijuana Other substance usage details: smoking,daily Do You Feel Safe in your Home?: Yes Lack of Transportation: No Lack of Food: Never True Current Housing: I Have Housing Concerned About Future Housing: No Difficulty Paying Gas/Electric Bills: No Difficulty Paying for Meds: No Currently Unemployed: Decline to Answer Education: High School Diploma/GED Difficulty w/ Childcare or Family C
[2023-06-22 16:39] LABS: Erythrocyte Sedimentation Rate 18 mm/hr (0-20)
[2023-06-22 18:03] VITALS: BP 173/78; PULSE 123; RESP 18; TEMP 36.6; O2SAT 100
== END 2023-06-22 18:03 | disposition home or self-care (01) ==
PROVIDERS: Emergency Provider Emergency Medicine; PCP Physician Assistant
DX: G95.9 Disease of spinal cord, unspecified (principal); K21.9 Gastro-esophageal reflux disease without esophagitis; F90.9 Attention-deficit hyperactivity disorder, unspecified type; F31.9 Bipolar disorder, unspecified; F41.8 Other specified anxiety disorders; Z98.1 Arthrodesis status; F17.290 Nicotine dependence, other tobacco product, uncomplicated
CPT/HCPCS: 36415; 80053; 85025; 85652; 86140; 99283

== ENCOUNTER 2023-06-29 12:54 | Outpatient (CLI) | payer OTHER, SELFPAY ==
--- NOTE | ~2023-06-29 | MR_ITS ---
EXAMINATION: MR cervical spine wo con DATE: 06/29/2023 13:56 INDICATION: Anesthesia of skin. Bilateral hand numbness. Right leg numbness. TECHNIQUE: Magnetic resonance imaging (MRI) of the cervical spine was performed without intravenous c ontrast. COMPARISON: Cervical spine MRI 10/18/2022 FINDINGS: There is 8 degrees levocurvature of cervicothoracic spine. There is kyphosis of cervical sp ine. There is 2 mm anterolisthesis of C4 on C5. Vertebral body heights are normal. There is changes o f anterior fusion procedure from C5 to C7 with interbody devices and anterior plate and screws. There are laminectomies from C3 to C6. There are changes of posterior fusion procedure from C3 to C6 with lateral mass screws. The cervical spinal cord is small with increased T2-weighted signal intensity at C5-C6, consistent with myelomalacia. The following disc levels are specifically discussed: C2-C3: The disc does not extend beyond the endplate margin. There is no uncovertebral joint osteoarth ritis. There is moderate bilateral facet joint osteoarthritis. There is no neural foraminal stenosis. There is no central canal stenosis. C3-C4: There is a central extrusion. There is severe bilateral uncovertebral joint osteoarthritis. Th ere is mild bilateral facet joint hypertrophy. There is moderate bilateral neural foraminal stenosis. There is mild central canal stenosis with posterior decompression. C4-C5: There is a central extrusion. There is mild bilateral uncovertebral joint osteoarthritis. Ther e is no facet joint hypertrophy. There is mild left neural foraminal stenosis. There is no central ca nal stenosis. C5-C6: There is mild bilateral uncovertebral joint hypertrophy. There is mild bilateral facet joint h ypertrophy. There is mild bilateral neural foraminal stenosis. There is no central canal stenosis. C6-C7: There is mild bilateral uncovertebral joint hypertrophy. There is mild bilateral facet joint h ypertrophy. There is mild right and moderate left neural foraminal stenosis. There is mild central ca nal stenosis with posterior decompression. C7-T1: There is a central extrusion. There is no uncovertebral joint osteoarthritis. There is severe right and mild left facet joint osteoarthritis. There is mild right neural foraminal stenosis. There is mild central canal stenosis. IMPRESSION: 1. Myelomalacia at C5-C6 again seen. 2. Moderate cervical spondylosis. 3. Anterior fusion procedure from C5 to C7. Posterior fusion procedure from C3 to C6. Reviewed, dictated and finalized at location A. RTING COORDINATOR
--- NOTE | ~2023-06-29 | MR_ITS ---
EXAMINATION: MR lumbar spine wo con DATE: 06/29/2023 13:57 INDICATION: Anesthesia of skin. TECHNIQUE: Magnetic resonance imaging (MRI) of the lumbar spine was performed without intravenous con trast. Sequences included sagittal T2-weighted FSE, sagittal T2-weighted FS FSE, sagittal T1-weighted FSE, and axial T2-weighted FSE. COMPARISON: None FINDINGS: There is 8 degrees dextrocurvature of thoracolumbar spine. Vertebral body heights are carlee l. There is mildly decreased disc height at L4-L5 and severely decreased disc height at L5-S1. The di stal spinal cord signal intensity is normal. The conus medullaris is at L1. The following disc levels are specifically discussed: L1-L2: The disc does not extend beyond the endplate margin. There is severe bilateral facet joint ost eoarthritis. There is no neural foraminal stenosis. There is no central canal stenosis. L2-L3: The disc does not extend beyond the endplate margin. There is severe bilateral facet joint ost eoarthritis. There is no neural foraminal stenosis. There is no central canal stenosis. L3-L4: The disc does not extend beyond the endplate margin. There is severe bilateral facet joint ost eoarthritis. There is mild bilateral neural foraminal stenosis. There is no central canal stenosis. L4-L5: The disc is bulging and has an annular fissure. There is severe bilateral facet joint osteoart hritis. There is mild bilateral neural foraminal stenosis. There is mild central canal stenosis. L5-S1: This is bulging and has an annular fissure. There is severe bilateral facet joint osteoarthrit is. There is mild bilateral neural foraminal stenosis. There is mild central canal stenosis. There is moderate stenosis of the lateral recesses. IMPRESSION: 1. Severe lower lumbar spondylosis. Reviewed, dictated and finalized at location A. 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
== END 2023-06-29 12:55 ==
LOC: GOSHIMG 12:54
PROVIDERS: PCP Physician Assistant; Visit Provider Physician Assistant
DX: R20.0 Anesthesia of skin (principal); R26.9 Unspecified abnormalities of gait and mobility; M47.896 Other spondylosis, lumbar region; M47.892 Other spondylosis, cervical region; Z98.1 Arthrodesis status
CPT/HCPCS: 72141; 72148